=== PATIENT | male | born 1945 | race Caucasian/White ===

== ENCOUNTER 2017-07-09 13:44 | Emergency (ER) | payer OTHER ==
[~2017-07-09] VITALS: Ht 182.9 cm; Wt 108.0 kg
--- NOTE | 2017-07-09 14:39 | PD ---
HPI Chief Complaint: Injury Time Seen by Provider: 14:17 Travel History International Travel<30 days: No Contact w/Intl Traveler<30days: No Traveled to known affect area: No History of Present Illness HPI 72 year-old male presents to the emergency room for evaluation of left foot pain after injuring it earlier today. Patient was walking around his car when he twisted his foot. He did not actually fall and denies any other injuries. States since then he has had pain when he ambulates localized to the left fifth metatarsal. He has no pain at rest. 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 He does not want his left side to be disabled because he lives alone and has been working hard to regain his strength. He denies paresthesias. He has not taken anything for symptoms. [facility] Social History Tobacco Use: No Allergies-Medications (Allergen,Severity, Reaction): Coded Allergies: No Known Allergies (Unverified , 07/09/17) Reported Meds & Prescriptions Reported Meds & Active Scripts Active Reported Clopidogrel (Clopidogrel Bisulfate) 75 Mg Tab 75 Mg PO DAILY Labetalol (Labetalol HCl) 100 Mg Tab 100 Mg PO BID Lisinopril 10 Mg Tab 10 Mg PO DAILY Atorvastatin (Atorvastatin Calcium) 80 Mg Tab 80 Mg PO HS Review of Systems Except as stated in HPI: all other systems reviewed are Neg Physical Exam Narrative GENERAL: Well-nourished, well-developed male in no acute distress. Ambulatory with his personal walker. SKIN: Focused skin assessment warm/dry. No obvious erythema or ecchymosis. HEAD: Normocephalic. EYES: No scleral icterus. No injection or drainage. NECK: Supple, trachea midline. No JVD or lymphadenopathy. CARDIOVASCULAR: Regular rate and rhythm without murmurs, gallops, or rubs. RESPIRATORY: Breath sounds equal bilaterally. No accessory muscle use. MUSCULOSKELETAL: No cyanosis. No obvious edema. No bony tenderness to palpation of bilateral malleoli or fifth metatarsal. Full range of motion of the ankle and foot without pain. 2+ dorsalis pedis pulse. Less than 2 second capillary refill distally. Strength 5/5 in left lower extremity. Data Data Last Documented VS Vital Signs Date Time Temp Pulse Resp B/P (MAP) Pulse Ox O2 Delivery O2 Flow Rate FiO2 07/09/17 15:11 98.6 71 18 149/77 (190) 98 Orders Orders Foot, Complete ([id number]) (07/09/17 ) [facility] Medical Decision Making Medical Screen Exam Complete: Yes Emergency Medical Condition: Yes Medical Record Reviewed: Yes Differential Diagnosis Sprain, strain, contusion, fracture Narrative Course 72-year-old male presents to the emergency room for evaluation of left lateral foot pain that started earlier today. Patient injured his foot while walking around his car. States he twisted it and felt immediate pain but only has pain with ambulation. He denies paresthesias. Patient is especially anxious because he had a stroke in January, but left his right side weak. He does not want his good side to be weak as well. Left lower extremity is neurovascularly intact with 2+ dorsalis pedis pulse. Full range of motion of the ankle and foot. No obvious edema, ecchymosis, or erythema. No specific bony tenderness to palpation. History and physical exam are consistent with sprain. X-ray shows no acute abnormality. Patient discharged with orthopedic instructions, told to take Tylenol for pain, and follow-up with a primary care physician or return for worsening symptoms. He understands and agrees to plan. Diagnosis Primary Impression: Sprain of left foot Qualified Codes: S93.602A - Unspecified sprain of left foot, initial encounter Referrals: Primary Care Physician Additional Instructions: Rest and drink plenty of fluids. Use walker as needed for pain. Take Tylenol as directed, as needed for pain. Apply ice to the affected area for 20 minutes at a time, as needed for pain and swelling. Follow-up with a primary care physician. Return to the emergency room for worsening symptoms. Disposition: 01 DISCHARGE HOME Condition: Stable Sheila Hicks Jul 09, 2017 14:39
[2017-07-09 15:11] VITALS: BP 149/77; PULSE 71; RESP 18; TEMP 98.6; O2SAT 98
[2017-07-09] MEDS ORDERED: LABE100T2 PO (15:23)
[2017-07-09] MEDS ORDERED: CLOP75TA PO (15:23)
[2017-07-09] MEDS ORDERED: ATOR1TAB18 PO (15:23)
[2017-07-09] MEDS ORDERED: LISI10TA3 PO (15:23)
--- NOTE | 2017-07-09 15:29 | RADRPT ---
EXAM DATE/TIME: 07/09/2017 14:47 [place] COMPARISON: No previous studies available for comparison. INDICATIONS : Tripped over parking curb at [facility] today. No pain unless weightbearing. MEDICAL HISTORY : Hypertension. SURGICAL HISTORY : None. ENCOUNTER: Initial ACUITY: 1 day PAIN SCORE: 0/10 LOCATION: Left Foot. FINDINGS: 3 views left foot. Bone alignment within normal limits. No evidence of fracture. Moderate sized plan tar calcaneal spur. CONCLUSION: No evidence of fracture. Calos Wang MD on July 09, 2017 at 15:26 Board Certified Radiologist. This report was verified electronically.
== END 2017-07-09 15:57 | disposition home or self-care (01) ==
LOC: PHEFT 13:44
DX: S93.602A Unspecified sprain of left foot, initial encounter (principal); X50.1XXA Overexertion from prolonged static or awkward postures, initial encounter; Y93.01 Activity, walking, marching and hiking
CPT/HCPCS: 73630; 99283

== ENCOUNTER 2017-08-17 04:50 | Emergency (ER) | payer OTHER ==
[~2017-08-17] VITALS: Ht 185.4 cm; Wt 107.4 kg
[~2017-08-17 04:50] MED LIST: ATOR80TA45 PO; CLOP75TA PO; LABE100T2 PO; LISI10TA3 PO
[2017-08-17 05:01] VITALS: BP 140/74; PULSE 69; RESP 22; TEMP 98.4; O2SAT 94
== END 2017-08-17 05:58 | disposition left against medical advice (07) ==
LOC: PHED 04:50
DX: R58 Hemorrhage, not elsewhere classified (principal)
CPT/HCPCS: 99281